=== PATIENT | female | born 1995 | race African-American/Black ===

== ENCOUNTER 2019-08-04 21:44 | Emergency (ER) | payer BC, MEDICAID ==
[~2019-08-04] VITALS: Ht 167.6 cm; Wt 80.7 kg
[2019-08-05 00:46] VITALS: BP 111/68
== END 2019-08-05 01:11 | disposition left against medical advice (07) ==
LOC: ER 21:44
DX: L02.416 Cutaneous abscess of left lower limb (principal); Z53.21 Procedure and treatment not carried out due to patient leaving prior to being seen by health care provider